=== PATIENT | female | born 1980 | race Caucasian/White ===

== ENCOUNTER 2016-03-24 22:47 | Emergency (ER) | payer OTHER ==
[2016-03-24 22:55] VITALS: RESP 18
--- NOTE | 2016-03-24 23:20 | ED ---
General Adult HPI - General Chief complaint: Headache Stated complaint: blurred vision, Time Seen by Provider: 03/24/16 23:01 Source: patient, RN notes reviewed Mode of arrival: wheelchair Limitations: no limitations - History of Present Illness Initial comments: This is a 35-year-old female who presents with headache that has been intermittent since Monday. Patient states she has a history of seizures and had 4 on Monday, 2 on Monday and one on Monday. Patient states she was treated in the [facility] on Monday for these seizures and her Keppra dose was doubled at this time. Patient has not had a seizure since Monday but has had on-and- off headaches since Monday. Patient denies any head injury, loss of consciousness or any neck pain. Patient states she has been sleeping well. Patient states she had one episode of emesis today. Patient denies any nausea. Patient also complains of blurred vision to the left eye that started today. Patient states this happened to her once before in the past. Patient denies foreign body sensation, erythema or purulent drainage from the eye. Patient denies any chance of being as she is currently on her menstrual cycle and patient states she has had a tubal ligation. 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 Patient has a history of breast cancer and was previously on chemo but is no longer receiving treatment for breast cancer. Patient states she has a mild cough but she states this is chronic for her as she is a smoker. Patient also complains of some congestion. Patient denies any drug or alcohol use. Patient denies any congestion, sore throat, otalgia or shortness of breath. Patient did not receive a flu shot this year. Patient denies any recent fever, chills, chest pain, abdominal pain, nausea/diarrhea, back pain, numbness, tingling, hematuria, dysuria or any other complaints. - Related Data Home Medications Medication Instructions Recorded Confirmed Warfarin [Coumadin] 7.5 mg PO HS 02/04/16 03/24/16 levETIRAcetam [Keppra] 1,000 mg PO Q12HR 03/24/16 03/24/16 Allergies Allergy/AdvReac Type Severity Reaction Status Date / Time No Known Allergies Allergy Verified 03/24/16 23:02 Review of Systems ROS Statement: Those systems with pertinent positive or pertinent negative responses have been documented in the HPI. ROS Other: All systems not noted in ROS Statement are negative. Past Medical History Past Medical History: Deep Vein Thrombosis (DVT), Seizure Disorder Additional Past Medical History / Comment(s): recovering addict History of Any Multi-Drug Resistant Organisms: None Reported Past Surgical History: Back Surgery, Breast Surgery, Section, Hernia Repair, Tubal Ligation Past Psychological History: Anxiety, Depression, PTSD Smoking Status: Current every day smoker Past Alcohol Use History: None Reported Past Drug Use History: None Reported General Exam - General Exam Comments Initial Comments: General: The patient is awake and alert, in no distress, and does not appear acutely ill. Eye: Pupils are equal, round and reactive to light, extra-ocular movements are intact. No nystagmus. There is normal conjunctiva bilaterally. No signs of icterus. Visual acuity is 20/30 in the left eye, 20/15 in the right eye and 20/ 30 with both eyes. Ears: TMs pink and pearly with intact cone of light bilaterally. Normal external ear canals Nose:nasal turbinates are slightly erythematous and edematous Mouth and throat: There are moist mucous membranes and no oral lesions. Neck: The neck is supple, there is no tenderness or JVD. No cervical midline tenderness. No meningismus. Cardiovascular: There is a regular rate and rhythm. No murmur, rub or gallop is appreciated. Respiratory: Lungs are clear to auscultation, respirations are non-labored, breath sounds are equal. No wheezes, stridor, rales, or rhonchi. Gastrointestinal: Soft, non-distended, non-tender abdomen without masses or organomegaly noted. There is no rebound or guarding present. No CVA tenderness. Bowel sounds are unremarkable. Musculoskeletal: Normal ROM, no tenderness. Strength 5/5. Sensation intact. Radial pulses equal bilaterally 2+. Neurological: A&O x 3. CN II-XII intact, There are no obvious motor or sensory deficits. Coordination appears grossly intact. Speech is normal. Skin: Skin is warm and dry and no rashes or lesions are noted. Psychiatric: Cooperative, appropriate mood & affect, normal judgment. Limitations: no limitations Course Vital Signs 03/24/16 03/24/16 22:51 23:53 Temperature 100.4 F H 101 F H Pulse Rate 115 H Respiratory 18 Rate Blood Pressure 127/73 O2 Sat by Pulse 99 Oximetry Medical Decision Making - Medical Decision Making This is a 35-year-old female who presents with a headache that started today. On physical exam patient is neurologically intact. Patient's lungs are clear to auscultation bilaterally. HEENT exam shows nasal turbinates are slightly erythematous and edematous. Patient is febrile in the [facility] today. Patient is on Coumadin. A computed tomography scan was done and reviewed showing: No acute intracranial hemorrhage, mass effect, or midline shift seen. Dr. Molina. Tonometry was done and patient's pressure in the left eye is 12 mmHg. Patient has no foreign body sensation, erythema or purulent drainage from the eye. Complain of eye pain. Basic labs were done and reviewed. Patient's INR is not at therapeutic levels. Discussed that patient contact her doctor regarding this. Patient denies any shortness breath or chest pain. A UA was done and negative for UTI. Influenza was checked and was negative. A chest x-ray is done and reviewed showing: #1 possible chronic bronchitis changes. #2 no focal pneumonia. Report by Dr. Molina. Temperature was rechecked and was 99.8. Discussed with patient this is most likely a viral upper respiratory infection. Patient states her headache has resolved. I discussed results with patient. I discussed close follow-up with her primary care physician tomorrow. I discussed return parameters. Please follow-up with ophthalmology tomorrow. Discussed that patient should follow up with PCP tomorrow or return to the [facility] for any worsening symptoms or for any further concerns. Patient was receptive to this plan and patient will be discharged home. I discussed his case with attending physician Dr. Boo who agrees the plan as stated above. - Lab Data Result diagrams: 03/24/16 23:28 03/24/16 23:28 Lab Results 03/24/16 03/24/16 03/24/16 Range/Units 23:28 23:28 23:28 WBC 8.8 (3.8-10.6) k/uL RBC 4.40 (3.80-5.40) m/uL Hgb 15.0 (11.4-16.0) gm/dL Hct 44.3 (34.0-46.0) % MCV 100.6 H (80.0-100.0) fL MCH 34.2 (25.0-35.0) pg MCHC 34.0 (31.0-37.0) g/dL RDW 12.3 (11.5-15.5) % Plt Count 231 (150-450) k/uL Neutrophils % 63 % Lymphocytes % 26 % Monocytes % 6 % Eosinophils % 1 % Basophils % 2 % Neutrophils # 5.6 (1.3-7.7) k/uL Lymphocytes # 2.3 (1.0-4.8) k/uL Monocytes # 0.6 (0-1.0) k/uL Eosinophils # 0.1 (0-0.7) k/uL Basophils # 0.2 (0-0.2) k/uL PT 10.8 (9.0-12.0) sec INR 1.1 (<1.1) APTT 25.0 (22.0-30.0) sec Sodium 142 (137-145) mmol/L Potassium 3.9 (3.5-5.1) mmol/L Chloride 104 (98-107) mmol/L Carbon Dioxide 26 (22-30) mmol/L Anion Gap 12 mmol/L BUN 9 (7-17) mg/dL Creatinine 0.70 (0.52-1.04) mg/dL Est GFR (MDRD) Af Amer >60 (>60 ml/min/1.73 sqM) Est GFR (MDRD) Non-Af >60 (>60 ml/min/1.73 sqM) Glucose 115 H (74-99) mg/dL Calcium 9.5 (8.4-10.2) mg/dL Total Bilirubin 1.1 (0.2-1.3) mg/dL AST 19 (14-36) U/L ALT 32 (9-52) U/L Alkaline Phosphatase 42 (38-126) U/L Total Protein 7.5 (6.3-8.2) g/dL Albumin 4.8 (3.5-5.0) g/dL Urine Color Urine Appearance (Clear) Urine pH (5.0-8.0) Ur Specific Page (1.001-1.035) Urine Protein (Negative) Urine Glucose (UA) (Negative) Urine Ketones (Negative) Urine Blood (Negative) Urine Nitrate (Negative) Urine Bilirubin (Negative) Urine Urobilinogen (<2.0) mg/dL Ur Leukocyte Esterase (Negative) Urine RBC (0-5) /hpf Urine WBC (0-5) /hpf Ur Squamous Epith Cells (0-4) /hpf Urine Mucus (None) /hpf Influenza Type A RNA (Not Detectd) Influenza Type B (PCR) (Not Detectd) 03/24/16 03/25/16 Range/Units 23:55 01:00 WBC (3.8-10.6) k/uL RBC (3.80-5.40) m/uL Hgb (11.4-16.0) gm/dL Hct (34.0-46.0) % MCV (80.0-100.0) fL MCH (25.0-35.0) pg MCHC (31.0-37.0) g/dL RDW (11.5-15.5) % Plt Count (150-450) k/uL Neutrophils % % Lymphocytes % % Monocytes % % Eosinophils % % Basophils % % Neutrophils # (1.3-7.7) k/uL Lymphocytes # (1.0-4.8) k/uL Monocytes # (0-1.0) k/uL Eosinophils # (0-0.7) k/uL Basophils # (0-0.2) k/uL PT (9.0-12.0) sec INR (<1.1) APTT (22.0-30.0) sec Sodium (137-145) mmol/L Potassium (3.5-5.1) mmol/L Chloride (98-107) mmol/L Carbon Dioxide (22-30) mmol/L Anion Gap mmol/L BUN (7-17) mg/dL Creatinine (0.52-1.04) mg/dL Est GFR (MDRD) Af Amer (>60 ml/min/1.73 sqM) Est GFR (MDRD) Non-Af (>60 ml/min/1.73 sqM) Glucose (74-99) mg/dL Calcium (8.4-10.2) mg/dL Total Bilirubin (0.2-1.3) mg/dL AST (14-36) U/L ALT (9-52) U/L Alkaline Phosphatase (38-126) U/L Total Protein (6.3-8.2) g/dL Albumin (3.5-5.0) g/dL Urine Color Yellow Urine Appearance Cloudy H (Clear) Urine pH 5.5 (5.0-8.0) Ur Specific Page 1.013 (1.001-1.035) Urine Protein Negative (Negative) Urine Glucose (UA) Negative (Negative) Urine Ketones Negative (Negative) Urine Blood Small H (Negative) Urine Nitrate Negative (Negative) Urine Bilirubin Negative (Negative) Urine Urobilinogen <2.0 (<2.0) mg/dL Ur Leukocyte Esterase Small H (Negative) Urine RBC 5 (0-5) /hpf Urine WBC 12 H (0-5) /hpf Ur Squamous Epith Cells 12 H (0-4) /hpf Urine Mucus Occasional H (None) /hpf Influenza Type A RNA Not Detected (Not Detectd) Influenza Type B (PCR) Not Detected (Not Detectd) Disposition Clinical Impression: Upper respiratory infection, Blurred vision, left eye Disposition: HOME SELF-CARE Condition: Good Instructions: Upper Respiratory Infection (ED), Acute Headache (ED) Additional Instructions: Please continue Tylenol or Motrin as needed for fever and headache. May use [id number] decongestant. Please follow-up with your primary care physician tomorrow or return to the [facility] for any worsening symptoms or for any further concerns. Referrals: Nonstaff,Physician [Primary Care Provider] - 1-2 days Hetal Tamayo MD [STAFF PHYSICIAN] - 1-2 days Tera Wallis MD [STAFF PHYSICIAN] - 1-2 days Time of Disposition: 01:47
[2016-03-24 23:36] LABS: Basophils # (A) 0.2 k/uL (0-0.2); Basophils % (A) 2 %; CH 34.5; CHCM 34.4; Eosinophils # (A) 0.1 k/uL (0-0.7); Eosinophils % (A) 1 %; HCT 44.3 % (34.0-46.0); HDW 2.25; Luc # (Auto) 0.13; Luc % (Auto) 2; Lymphocytes # (A) 2.3 k/uL (1.0-4.8); Lymphocytes % (A) 26 %; MCH 34.2 pg (25.0-35.0); MCV 100.6 fL (80.0-100.0); Mean Platelet Volume 6.9; Monocytes # (A) 0.6 k/uL (0-1.0); Monocytes % (A) 6 %; Neutrophils # (A) 5.6 k/uL (1.3-7.7); Neutrophils % (A) 63 %; RDW 12.3 % (11.5-15.5); WBC 8.8 k/uL (3.8-10.6); WBC (Perox) 8.63
[2016-03-24 23:45] LABS: ALT 32 U/L (9-52); AST 19 U/L (14-36); Alkaline Phosphatase 42 U/L (38-126); Anion Gap 12 mmol/L; Blood Urea Nitrogen 9 mg/dL (7-17); Calcium 9.5 mg/dL (8.4-10.2); Carbon Dioxide 26 mmol/L (22-30); Chloride 104 mmol/L (98-107); Glucose 115 mg/dL (74-99); Non-African American GFR(MDRD) >60 (>60 ml/min/1.73 sqM); Potassium 3.9 mmol/L (3.5-5.1); Sodium 142 mmol/L (137-145); Total Bilirubin 1.1 mg/dL (0.2-1.3); Total Protein 7.5 g/dL (6.3-8.2)
[2016-03-24 23:52] LABS: INR 1.1 (<1.1); Prothrombin Time 10.8 sec (9.0-12.0)
--- NOTE | 2016-03-25 00:03 | CT ---
EXAMINATION TYPE: CT brain wo con DATE OF EXAM: 03/24/2016 11:35 PM COMPARISON: None. HISTORY: headache CT DLP: 1054.20 mGycm Automated exposure control for dose reduction was used. FINDINGS: There is no acute intracranial hemorrhage, mass effect, or midline shift identified. The ventricles and sulci are within normal limits in size. The globes are intact and the visualized sinuses are antonio ar. Small calcifications are noted in the scalp tissue in the left frontal area in the axial image 44 and is probably related to old trauma or inflammatory process. IMPRESSION: No acute intracranial hemorrhage, mass effect, or midline shift is seen.
--- NOTE | 2016-03-25 00:29 | XR ---
EXAMINATION TYPE: XR chest 2V DATE OF EXAM: 03/25/2016 12:05 AM COMPARISON: 02/04/2016 HISTORY: Pain cough fever headache TECHNIQUE: Frontal and lateral views of the chest are obtained. FINDINGS: Mild peribronchial cuffing is suggested with possible chronic bronchitis changes. There is no focal air space opacity, pleural effusion, or pneumothorax seen. The cardiac silhouette size is within normal limits. The osseous structures are intact. IMPRESSION: 1. Possible chronic bronchitis changes. 2. No focal pneumonia.
[2016-03-25] MEDS: SODIUM CHLORIDE 0.9% 1,000 ML IV ONE (00:35)
[2016-03-25] MEDS: ACETAMINOPHEN TAB 500 MG TAB PO STA (00:35)
[2016-03-25] MEDS: IBUPROFEN IV 400 MG in SODIUM CHLORIDE 0.9% 250 ML IV ONE (00:57)
[2016-03-25 01:17] LABS: Appearance,Urine Cloudy (Clear); Bilirubin,Urine Negative (Negative); Glucose,Urine (UA) Negative (Negative); Ketones,Urine Negative (Negative); Leukocyte Esterase,Urine Small (Negative); Mucus,Urine Occasional /hpf; Nitrite,Urine Negative (Negative); PH, Urine 5.5 (5.0-8.0); Particle Count 13779; Protein,Urine Negative (Negative); RBC,Urine 5 /hpf (0-5); Specific Gravity,Urine 1.013 (1.001-1.035); Squamous Epithelial Cell,Urine 12 /hpf (0-4); UA Billing (MACRO vs. MICRO) MICRO; Urobilinogen,Urine <2.0 mg/dL (<2.0); WBC,Urine 12 /hpf (0-5)
[2016-03-25 02:19] VITALS: BP 114/69; PULSE 96; TEMP 99.1
== END 2016-03-25 02:19 | disposition home or self-care (01) ==
LOC: EC 22:47
DX: J06.9 Acute upper respiratory infection, unspecified (principal); H53.8 Other visual disturbances; R11.10 Vomiting, unspecified; Z79.899 Other long term (current) drug therapy; Z79.01 Long term (current) use of anticoagulants; Z86.718 Personal history of other venous thrombosis and embolism; G40.909 Epilepsy, unspecified, not intractable, without status epilepticus; F17.200 Nicotine dependence, unspecified, uncomplicated; Z86.711 Personal history of pulmonary embolism; Z85.3 Personal history of malignant neoplasm of breast; Z92.21 Personal history of antineoplastic chemotherapy
CPT/HCPCS: 36415; 70450; 71020; 80053; 81001; 85025; 85610; 85730; 87086; 87502; 96365; 99284